=== PATIENT | female | born 1985 | race Caucasian/White ===

== ENCOUNTER 2020-02-16 14:35 | Emergency (ER) | payer OTHER ==
[~2020-02-16 14:35] MED LIST: AFRIN15 M1; AUGMENTIN 875-1 EACH PO; IBUPROFEN200 MG PO; IBUPROFEN600 MG PO; NORCO 5-325 TA1 EACH PO; PRILOSEC OTC20 MG PO
[2020-02-16 16:08] LABS: HEMOGLOBIN 14.7 gm/dl (12.3-15.3); RED BLOOD COUNT 4.33 M/UL (4.00-5.10); WHITE BLOOD COUNT 9.2 K/UL (4.5-11.0)
[2020-02-16 16:12] LABS: BUN/CREATININE RATIO 8 (0-10)
== END 2020-02-16 16:40 | disposition home or self-care (01) ==
LOC: ER1 14:35
PROVIDERS: Emergency Medicine
DX: R10.32 Left lower quadrant pain (principal); F17.200 Nicotine dependence, unspecified, uncomplicated
CPT/HCPCS: 80053; 81001; 83690; 84703; 85025; 99284

== ENCOUNTER 2021-04-30 10:53 | Emergency (ER) | payer OTHER ==
[2021-04-30 12:21] LABS: HEMOGLOBIN 14.5 gm/dl (12.3-15.3); RED BLOOD COUNT 4.27 M/UL (4.00-5.10); WHITE BLOOD COUNT 13.2 K/UL (4.5-11.0)
[2021-04-30 12:46] LABS: BUN/CREATININE RATIO 9 (0-10)
[2021-04-30] MEDS ORDERED: PROBIOTIC1 EAC1 PO (14:01)
[2021-04-30] MEDS ORDERED: MYCOSTATIN100000 UTS PO (14:01)
[2021-05-03 22:07] LABS: CHLAMYDIA TRACHOMATIS, NAA Negative (Negative); NEISSERIA GONORRHOEAE, NAA Negative (Negative)
== END 2021-04-30 14:30 | disposition home or self-care (01) ==
LOC: ER1 10:53
PROVIDERS: Physician Assistant; Preventive Medicine Occupational Medicine
DX: K52.9 Noninfective gastroenteritis and colitis, unspecified (principal); K62.5 Hemorrhage of anus and rectum; F17.200 Nicotine dependence, unspecified, uncomplicated; B37.9 Candidiasis, unspecified; E78.5 Hyperlipidemia, unspecified; F41.9 Anxiety disorder, unspecified; K76.9 Liver disease, unspecified
CPT/HCPCS: 80053; 81001; 84703; 85025; 87081; 87086; 87880; 99284; Q9967

== ENCOUNTER → 2021-05-26 | Outpatient (CLI) | payer OTHER ==
[~2021-05-26] MED LIST changes: +MYCOSTATIN100000 UTS PO; +PROBIOTIC1 EAC1 PO
== END ==
LOC: CT 14:12
DX: K76.9 Liver disease, unspecified (principal)
CPT/HCPCS: 74170; Q9967

== ENCOUNTER → 2021-09-27 | Outpatient (CLI) | payer OTHER | LOC: MAMO 09:59 | DX: N63.21 Unspecified lump in the left breast, upper outer quadrant (principal) | CPT/HCPCS: 76641-LT; 77066; G0279 ==